=== PATIENT | female | born 1985 | race Caucasian/White ===

== ENCOUNTER 2017-08-04 11:06 | Outpatient (CLI) | payer MEDICAID ==
[~2017-08-04] VITALS: Ht 170.2 cm; Wt 128.2 kg
[2017-08-04] VITALS (15 sets, daily range): BP systolic 162–204; BP diastolic 88–119; PULSE 88–101; TEMP 98–98.1
[~2017-08-04 11:06] MED LIST: ALDOMET 250MG250 MG PO; BIRTH CONTROL; BLOOD PRESSURE MED; CEPHALEXIN250 M1 PO; FLEXERIL 1010 MG/TAB PO; LORTAB 5/500 501 TAB; LORTAB 5/500 501 TAB PO; METRONIDAZOLE500 MG PO; NAPROSYN500 MG PO; NORCO 325 MG-51 TAB PO; NORCO 325 MG-7.1 TAB PO; PENICILLIN V500 MG PO; SEROQUEL 1100 MG/TAB PO; TRANDATE 200MG200 MG PO
[2017-08-04 11:53] LABS: BASO # 0.1 (0.0-0.2); BASO % 0.3 % (0.0-2.0); EOS # 0.1 (0.0-0.7); EOS % 0.8 % (0-4.0); GRAN # 12.6 (1.4-6.5); GRAN % 76.8 % (42.2-75.2); HEMATOCRIT 38.4 % (37.0-47.0); HEMOGLOBIN 12.2 g/dl (12.5-16.0); LYMPH # 2.6 (1.2-3.4); LYMPH % 15.7 % (20.0-51.0); MEAN CELL VOLUME 74 fl (80.0-100.0); MEAN CORPUSCULAR HEMOGLOBIN 24 pg (27.0-31.0); MEAN CORPUSCULAR HGB CONC 32 g/dl (33.0-37.0); MEAN PLATELET VOLUME 9.5 fl (7.4-10.4); MONO # 0.9 (0.1-0.6); MONO % 5.2 % (1.7-9.3); PLATELET COUNT 396 K/mm3 (130-400); RED BLOOD COUNT 5.16 M/mm3 (4.10-5.30); REDCELL DISTRIBUTION WIDTH-CV 14.3 % (11.5-14.5)
[2017-08-04 11:55] LABS: ALBUMIN 4.1 gm/dL (3.5-5.0); BILIRUBIN,TOTAL 0.3 mg/dL (0.0-1.0); CALCIUM 9.7 mg/dL (8.4-10.2); CREATININE, serum 0.51 mg/dL (0.52-1.25); POTASSIUM 4.2 mmol/L (3.4-5.0); TOTAL PROTEIN 8.1 gm/dL (6.4-8.2)
[2017-08-04 12:52] LABS: TRICYCLIC ANTIDEPRESS URINE POSITIVE
== END 2017-08-04 14:00 | disposition short-term general hospital (02) ==
LOC: LDRO 11:06 → LDR 11:10 → LDRO 14:00
PROVIDERS: Obstetrics & Gynecology
DX: O16.3 Unspecified maternal hypertension, third trimester (principal); Z3A.32 32 weeks gestation of pregnancy; O99.343 Other mental disorders complicating pregnancy, third trimester; O09.213 Supervision of pregnancy with history of pre-term labor, third trimester; O99.283 Endocrine, nutritional and metabolic diseases complicating pregnancy, third trimester; E03.9 Hypothyroidism, unspecified; O09.33 Supervision of pregnancy with insufficient antenatal care, third trimester; O99.830 Other infection carrier state complicating pregnancy; Z22.322 Carrier or suspected carrier of Methicillin resistant Staphylococcus aureus; F31.9 Bipolar disorder, unspecified; O34.219 Maternal care for unspecified type scar from previous cesarean delivery
CPT/HCPCS: OP; J3475; J7030; J7050